=== PATIENT | male | born 1980 | race Caucasian/White ===

== ENCOUNTER 2021-08-15 08:12 | Emergency (ER) | payer BC ==
[~2021-08-15] VITALS: Ht 188 cm; Wt 113.4 kg
[~2021-08-15 08:12] MED LIST: ALBU.083IS IH; ALBU90I INH; ALBU90OI; ALBU90OI INH; ALBU90OI6 INH; AZIT500 PO; BUDE6HFA INH; CEPH500 PO; CLIN300 PO; DOXY100 PO; HYDACE5 PO; OXYACE10 PO; OXYACE5T PO; PROCODE120 PO
[2021-08-15] MEDS ORDERED: Percocet 7.5-31 EACH PO (10:10)
[2021-08-15] MEDS ORDERED: IBUP800 PO (10:10)
[2021-08-15] MEDS ORDERED: Robaxin750 MG PO (10:10)
== END 2021-08-15 10:30 | disposition home or self-care (01) ==
LOC: ER 08:12
DX: S39.012A Strain of muscle, fascia and tendon of lower back, initial encounter (principal); S29.012A Strain of muscle and tendon of back wall of thorax, initial encounter; J45.909 Unspecified asthma, uncomplicated; Z88.0 Allergy status to penicillin; Z79.899 Other long term (current) drug therapy; X58.XXXA Exposure to other specified factors, initial encounter
CPT/HCPCS: 72080; 96374; 99284-25; A9270; J1885